=== PATIENT | female | born 1990 | race Caucasian/White ===

== ENCOUNTER 2023-12-07 08:02 | Emergency (ER) | payer OTHER, SELFPAY ==
[2023-12-07 08:06] VITALS: BP 99/64
--- NOTE | 2023-12-07 08:21 | ED.GENMED ---
Addendum entered and electronically signed by Suleman Sawant PA-C 12/09/23 07:25:
On cefdinir, UCx positive for 100k gram neg bacilli, awaiting final
Original Note:
History of Present Illness
General
Chief Complaint: Flank Pain
Source: patient and records
Exam Limitations: none
Time Seen by Provider: 12/07/23 08:12
Nursing documentation reviewed up to this point in time: agreed with
Travel History
Have you had any contact with someone who has COVID-19?: No
Do you have any symptoms of coronavirus? Fever > 100 degrees, chills, cough, shortness of breath, sore throat, loss of taste or smell, muscle aches, or headache?: No
History of Present Illness
History of Present Illness:
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 Patient reports
onset of symptoms 4 days ago they have been constant since that time although intensity seems to wax and wane. Reports dull pain located in the right flank. No clear triggering or relieving factors noted. She reports associated fever also x 4
days. She says she has noticed some urinary frequency and sensation of incomplete emptying of her bladder but has not noticed any dysuria or gross hematuria. She has not had any vaginal bleeding or discharge she says�last menstrual period she says
was 2 weeks ago. She denies any diarrhea; she has had some mild constipation over the past couple of days but says she had a bowel movement today which was normal. She says that she has some mild nausea and had some vomiting overnight. She says
she had similar symptoms with pyelonephritis in the past. She reports prior surgical history of left nephrectomy as above also prior cholecystectomy.
Past History
Past History
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
for nutcracker syndrome, Fela's thyroiditis)
ED Past Surgical History: Cholecystectomy, and Other ([place] teeth, L nephrectomy)
Social History
Tobacco: Non-smoker
Alcohol: None
Personal:
Living: with family
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
Family History
Family History: Negative Diabetes, Hypertension or CAD
Review of Systems
Review of Systems
All Other Systems: ROS reviewed and negative except as documented in HPI and ROS
Constitutional: Reports fever and chills
EENT: Denies sore throat or runny nose
Respiratory: Denies cough or trouble breathing
Cardiac: Denies chest pain
ABD/GI: Reports nausea, vomiting and constipated; Denies abdominal pain or diarrhea
: Reports frequency and flank pain; Denies dysuria or bleeding
Musculoskeletal: Denies neck pain
Neurological: Denies dizzy, headache, weakness or numbness
Phy Exam
Physical Exam
Physical Exam:
General: Awake, alert, oriented x3; no acute distress
Head: Normocephalic, atraumatic
Eyes: Conjunctiva normal, sclera anicteric
Throat: Airway intact, handling secretions
Neck: Trachea midline, supple without meningismus
Lungs: Clear to auscultation bilaterally, no wheezing, rales, rhonchi
Heart: Regular rate and rhythm, no murmurs, gallops, or rubs
Abd: Soft, non distended, nontender to deep palpation
Back: Right-sided CVA tenderness
Neuro: Cranial nerves grossly intact, speech fluid, ambulatory in ED with normal gait
Skin: no rash
Extremities: Warm well-perfused
Scores
Heart Failure Risk
Heart Failure Risk Score: Not Applicable
Heart Score for Chest Pain Patients
STEMI patient?: Not applicable
Withdrawal Assessment of Alcohol
Withdrawal Assessment Completed?: Not applicable
Course
Orders/Labs/Results
Orders:
Orders
12/07/23 08:13
Test Result ONCE
12/07/23 08:21
CT Abd/pel Without Iv Or Oral Urgent
Comment:
Reason For Exam: right flank pain; h/o L nephrectomy
Morphine Sulfate 4 mg IV NOW STA
12/07/23 08:24
0.9% Sodium Chloride 500 ml [Nss] 500 ml IV BOLUS
Ondansetron Injectable [Zofran] 4 mg IV NOW STA
12/07/23 09:04
Complete Blood Count/With Diff Urgent
Comprehensive Metabolic Panel Urgent
HCG, Serum Qualitative Screen Urgent
12/07/23 09:05
Urinalysis Reflex To Culture Urgent
Date Specimen was Collected: 12/07/23
Time Specimen was Collected: 08:43
Urine Microscopic Reflex Cult Urgent
Urine Culture Urgent
PENELOPE Source: U
Specimen Description:
Date Specimen was Collected: 12/07/23
Time Specimen was Collected: 08:43
Abnormal Lab Results
12/07/23 02
09:04 09:05
RBC 3.70 L 10^6/uL
(4.20-5.40)
Hgb 11.8 L g/dL
(12.0-16.0)
Hct 34.0 L %
(37.0-47.0)
MCH 31.9 H pg
(27.0-31.0)
MPV 10.5 H fL
(7.4-10.4)
Absolute Neuts (auto) 7.8 H 10^3/uL
(1.4-6.5)
Absolute Lymphs (auto) 0.5 L 10^3/uL
(1.2-3.4)
Neutrophils % 88.6 H %
(42.2-75.2)
Lymphocytes % 5.1 L %
(20.5-51.1)
Sodium 133 L mmol/L
(135-145)
BUN 18 H mg/dl
(7-17)
Creatinine 1.1 H mg/dL
(0.6-1.0)
Glucose 112 H mg/dl
(70-99)
AST 41 H U/L
(14-36)
ALT 49 H U/L
(0-35)
Alkaline Phosphatase 139 H U/L
(38-126)
Total Protein 5.8 L g/dl
(6.3-8.2)
Albumin 3.2 L g/dl
(3.5-5.0)
Ur Occult Blood Reflex 4+ A
(Negative)
Leukocyte Esterase Rfl 2+ A
(Negative)
Urine Albumin (Reflex) 2+ A
(Neg - Trace)
12/07/23 09:04
12/07/23 09:04
Vital Signs
Initial and Last Documented VS:
Initial Vital Signs
Temp Pulse Resp BP Pulse Ox
36.9 C 91 18 99/64 97
12/07/23 08:06 12/07/23 08:06 12/07/23 08:06 12/07/23 08:06 12/07/23 08:06
Last Documented Vital Signs
Temp Pulse Resp BP Pulse Ox
36.9 C 91 18 99/64 97
12/07/23 08:06 12/07/23 08:06 12/07/23 08:06 12/07/23 08:06 12/07/23 08:06
MDM/Problems Addressed
Differential Diagnosis Includes:
Nephrolithiasis, pyelonephritis, ovarian cyst, appendicitis somewhat less likely with no abdominal tenderness
MDM/Problems Addressed:
33-year-old female presents for evaluation of right flank pain associate with fever and urinary symptoms for the past 4 days as well as some nausea/vomiting overnight. She says similar prior episodes of pyelonephritis. Vital signs within normal
limits on arrival. Physical exam as above. Plan to place an IV check labs including a CBC and a CMP, hCG. Will check urinalysis. Will send for CT of the abdomen pelvis. Will treat pain and nausea and provide some fluids. Monitor closely
reassess after the above.
Labs reviewed: CBC shows marginal anemia which is stable. CMP shows creatinine 1.1 which is baseline for the patient. Marginal elevation of AST/ALT (41/49) unlikely of clinical significance�patient will follow-up with her PCP for repeat blood
work. Her hCG is negative. Her urinalysis is concerning for possible infection. CT of the abdomen pelvis shows no stone, normal-appearing appendix no other acute pathology�she does have some mild constipation. Concern with fever and flank pain
for potential pyelonephritis. Fortunately patient appears generally well and has no signs of sepsis here today. She has normal renal function. Discussed with nephrology given patient has had prior left nephrectomy and only has 1 remaining
kidney�with well appearing patient not septic reasonable to discharge on oral antibiotic. Patient feels comfortable with this plan. Spoke about return precautions all questions answered.
Chronic conditions affecting care:
Left nephrectomy
*Radiology
Radiology exam reviewed: radiology read reviewed
*Pulse Oximetry
Patient hypoxic: no
*Critical Care Note
Total Time (30-74mins, 75-104mins- exclusive of procedures): Not Applicable
Data Reviewed
Review of Other/Old Records Reveals: Labs and Records
Source: patient and records
Patient Management
Discussion with other providers: Dough Puncher (Discussed with nephrology)
ED Attending Note
-
Portions of this chart may have been created with voice recognition software.� Occasional wrong word or��sound alike� substitutions may have occurred due to the inherent limitations of voice recognition software.
Discharge Plan
Departure
Patient with high blood pressure during this ER visit?: No
Discharge Problem:
Pyelonephritis, Abnormal LFTs
Instructions: Kidney Infection (DC)
Prescriptions:
New
cefdinir 300 mg capsule
300 mg PO BID 7 Days Qty: 14 0RF
No Action
dronabinol [Marinol] 5 MG capsule
5 mg PO BID
clonazepam 0.5 MG tablet
1 mg PO BID
quetiapine [Seroquel] 200 mg Tablet
200 mg PO HS
tramadol 50 mg Tablet
50 mg PO BID
levothyroxine [Synthroid] 100 mcg Tablet
150 mcg PO DAILY
lansoprazole 30 mg Tablet,Disintegrat, Delay Rel
40 mg PO DAILY
quetiapine [Seroquel] 50 mg Tablet
50 mg PO TID
buprenorphine HCl [Belbuca] 75 mcg Film
75 mcg BUCCAL BID
Referrals:
Marino Jones DO [Family Provider] - Call in 1-3 days for appt
Activity Restrictions/Additional Instructions:
You should take the full course of antibiotics as prescribed to treat your urinary tract infection. You should follow-up with your primary doctor within the next few days to have repeat blood work as your liver function tests were noted to be
marginally abnormal here. You should also have repeat urinalysis as you had blood and protein in your urine�if this is persistent you will need further assessment.
Thank you for visiting the Emergency Department at [facility].
1. Please schedule a follow up appointment as directed. Call first thing tomorrow morning to make an appointment.
2. If indicated, please take your medications as instructed and indicated on discharge paperwork.
3. If any of your symptoms do not improve, or persist, or become more severe within 6-12 hours, please return to the emergency department for further care.
4. Please return to the emergency department if you develop a headache, neck pain/stiffness, fever greater than 100.4F, chest pain, shortness of breath, persistent nausea, vomiting, slurred speech, difficulty walking, numbness/tingling, weakness,
signs of infection or any other symptoms that are worrisome to you.
Please call [phone] if you have any questions.
Interventions
Interventions:
*Risk Screen - Suicide Last Done: 12/07/23 08:45
*General Assessment Last Done: 12/07/23 08:45
*Neglect/Abuse Screening Last Done: 12/07/23 08:45
ED- Fall Risk Assessment Last Done: 12/07/23 08:45
*ED COVID-19 Vaccine History Last Done: 12/07/23 08:08
[place]-Aqrnqf-Qawjxmwxox Assessment Last Done: 12/07/23 08:45
ED-Female Genitourinary Assessment Last Done: 12/07/23 08:45
[2023-12-07] MEDS: ZOFRAN 4 MG IV (08:50)
[2023-12-07] MEDS: NSS 500 IV (08:51)
[2023-12-07] MEDS: MORPHINE SULFATE 4 MG IV (08:51)
[2023-12-07 09:18] LABS: Urine Albumin 2+ (Neg - Trace); Urine Bilirubin Negative (Negative); Urine Character Very Cloudy (Clear); Urine Color Yellow; Urine Glucose Negative (Negative); Urine Ketone Negative (Negative); Urine Leukocyte 2+ (Negative); Urine Nitrite Negative (Negative); Urine Occult Blood 4+ (Negative); Urine Specific Gravity 1.015 (<1.030); Urine Urobilinogen Negative (Neg - 1+)
[2023-12-07 09:20] LABS: % Basophils 0.2 % (0-2); % Eosinophils 0.8 % (0-6); % Immature Granulocytes 0.3 % (0-0.5); % Lymphocytes 5.1 % (20.5-51.1); % Neutrophils 88.6 % (42.2-75.2); Absolute Eosinophils 0.1 10^3/uL (0-0.7); Absolute Lymphocytes 0.5 10^3/uL (1.2-3.4); Absolute Monocytes 0.4 10^3/uL (0.1-0.6); Absolute Neutrophils 7.8 10^3/uL (1.4-6.5); Hemoglobin 11.8 g/dL (12.0-16.0); Mean Corp Hgb Conc. 34.7 g/dL (33.0-37.0); Mean Corpuscular Hgb 31.9 pg (27.0-31.0); Mean Corpuscular Volume 91.9 fL (81.0-99.0); Mean Platelet Volume 10.5 fL (7.4-10.4); Nucleated Red Blood Cells % 0 %; Platelet Count 182 10^3/uL (130-400); Red Cell Dist. Width 12.4 % (11.5-14.5); White Blood Cell Count 8.8 10^3/uL (4.8-10.8)
[2023-12-07 09:29] LABS: ALT (SGPT) 49 U/L (0-35); AST (SGOT) 41 U/L (14-36); Albumin 3.2 g/dl (3.5-5.0); Alkaline Phosphatase 139 U/L (38-126); Blood Urea Nitrogen 18 mg/dl (7-17); Calcium 8.4 mg/dl (8.4-10.2); Carbon Dioxide 25 mmol/L (22-30); Chloride 103 mmol/L (98-107); Glucose 112 mg/dl (70-99); Potassium 3.6 mmol/L (3.5-5.1); Sodium 133 mmol/L (135-145); Total Bilirubin 0.4 mg/dl (0.2-1.3); Total Protein 5.8 g/dl (6.3-8.2); eGFR > 60.00
[2023-12-07 09:32] LABS: HCG, Serum Qualitative Screen Negative
[2023-12-07 09:51] LABS: Urine Bacteria Moderate (Negative); Urine Squamous Cell 21-25 /LPF (Few)
[2023-12-07 09:52] LABS: Urine White Cell 40-50 /HPF (0-5)
[2023-12-07] MEDS: ROCEPHIN 1000 MG IV (10:13)
[2023-12-07 10:30] VITALS: BP 101/63
== END 2023-12-07 10:32 | disposition home or self-care (01) ==
LOC: EMR 08:02
PROVIDERS: EMERGENCY PHYSICIAN Emergency Medicine; FAMILY PHYSICIAN Internal Medicine
DX: N12 Tubulo-interstitial nephritis, not specified as acute or chronic (principal); R79.89 Other specified abnormal findings of blood chemistry; Z90.5 Acquired absence of kidney
CPT/HCPCS: 99284; 96374; 96375 ×2; 96361; 74176; 80053; 81003; 81015; 84703; 85025; 87077; 87086; 87186

== ENCOUNTER → 2024-02-24 08:58 | Outpatient (REF) | payer OTHER, SELFPAY | LOC: RAD 08:58 | PROVIDERS: ATTENDING PHYSICIAN Anesthesiology; FAMILY PHYSICIAN Internal Medicine | DX: M54.16 Radiculopathy, lumbar region (principal) | CPT/HCPCS: 76705 ==

== ENCOUNTER → 2024-07-19 13:44 | Outpatient (REF) | payer OTHER, SELFPAY | LOC: HWRAD 13:44 | PROVIDERS: ATTENDING PHYSICIAN Obstetrics & Gynecology; FAMILY PHYSICIAN Internal Medicine | DX: R10.2 Pelvic and perineal pain (principal); N92.0 Excessive and frequent menstruation with regular cycle | CPT/HCPCS: 76830; 76856 ==

== ENCOUNTER → 2025-02-09 17:24 | Outpatient (REF) | payer OTHER, SELFPAY | LOC: RAD 17:24 | PROVIDERS: ATTENDING PHYSICIAN Internal Medicine | DX: R07.81 Pleurodynia (principal) | CPT/HCPCS: 71250 ==

== ENCOUNTER → 2025-02-10 10:04 | Outpatient (REF) | payer OTHER, SELFPAY | LOC: RAD 10:04 | PROVIDERS: ATTENDING PHYSICIAN Surgery; FAMILY PHYSICIAN Internal Medicine | DX: Z90.5 Acquired absence of kidney (principal); R31.9 Hematuria, unspecified | CPT/HCPCS: 74178; Q9967 ==

== ENCOUNTER → 2025-08-07 13:01 | Outpatient (REF) | payer OTHER, SELFPAY | LOC: RAD 13:01 | PROVIDERS: ATTENDING PHYSICIAN Anesthesiology | DX: M19.011 Primary osteoarthritis, right shoulder (principal) | CPT/HCPCS: 73030 ==

== ENCOUNTER 2025-08-23 11:10 | Emergency (ER) | payer OTHER, SELFPAY ==
[2025-08-23 11:15] VITALS: BP 164/104
[2025-08-23 11:48] VITALS: BMI 26.2
[2025-08-23 11:51] VITALS: BP 143/96
[2025-08-23 12:00] VITALS: BP 138/100
--- NOTE | 2025-08-23 12:00 | ED.GENMED ---
History of Present Illness
General
Chief Complaint: Heart Rate Problem
Source: patient
Exam Limitations: none
Time Seen by Provider: 08/23/25 12:00
History of Present Illness
History of Present Illness:
35yoF with a history of hypothyroidism, nutcracker syndrome s/p L nephrectomy, and GERD presenting for evaluation of palpitations. Patient reports elevated heart rate over the past 3 days. Her resting heart rate is typically in the 60s and it has
been in the 100s the past few days. She reports feeling like her heart beating in the back of her throat mainly at nighttime. She states it feels like 'meth is running through my veins.' She had some left upper chest discomfort earlier today. No
new medication changes. She denies any drug/alcohol use or caffeine use. She is currently being evaluated for adrenal insufficiency by her coater smoking pipe and has a thyroid ultrasound scheduled for this afternoon.
Past History
Past History
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
for nutcracker syndrome, Fela's thyroiditis)
ED Past Surgical History: Cholecystectomy, and Other ([place] teeth, L nephrectomy)
Social History
Tobacco: Non-smoker
Alcohol: None
Personal:
Living: with family
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
Family History
Family History: Negative Diabetes, Hypertension or CAD
Phy Exam
General Physical Exam
General Presentation: well appearing and no apparent distress
General Skin: warm and dry
General Habitus: normal
General Mental: alert
ENT Exam
ENT Exam: normocephalic
Cardiovascular Exam
Cardiovascular Exam: regular rate/rhythm, no edema, no murmur and normal peripheral pulses
Pulmonary Exam
Pulmonary Exam: lungs clear, no respiratory distress, no rales, no crackles, no rhonchi and no wheezing
Neurological Exam
Neurological Exam: alert
Rosa M Coma Scale
Eye Opening: Spontaneous
Verbal Response: Oriented
Motor Response: Obeys Commands
GCS Total Score: 15
Skin Exam
Skin Exam: normal color and warm/dry
Psychiatric Exam
Psychiatric Exam: normal mood/affect
Course
Orders/Labs/Results
Orders:
Orders
08/23/25 11:19
Electrocardiogram (*1) Urgent
Reason for Study: Chest Pain
EKG- Treatment ONCE
08/23/25 11:52
Test Result ONCE
08/23/25 12:00
Complete Blood Count/With Diff Urgent
Comprehensive Metabolic Panel Urgent
HCG, Serum Qualitative Screen Urgent
Comment: Notify provider if positive test present
Magnesium Urgent
Comment: ADD
TSH Reflex To Free T4 Urgent
Troponin I Urgent
08/23/25 12:06
Add On- LAB Urgent
Comments:: magnesium
Tests Added?: magnesium
08/23/25 12:28
COVID-19 Antigen Urgent
Source: Nasal Swab
Influenza A+B Rapid Molecular Urgent
PENELOPE Source: Nasal Swab
Specimen Description:
08/23/25 12:39
0.9% Sodium Chloride 1000 ml [Nss] 1,000 ml IV BOLUS
Abnormal Lab Results
08/23/25
12:00
RBC 3.92 L 10^6/uL
(4.20-5.40)
Hct 36.0 L %
(37.0-47.0)
Sodium 134 L mmol/L
(135-145)
BUN 23 H mg/dl
(7-17)
Creatinine 1.2 H mg/dL
(0.6-1.0)
Glucose 102 H mg/dl
(70-99)
08/23/25 12:00
08/23/25 12:00
Vital Signs
Initial and Last Documented VS:
Initial Vital Signs
Temp Pulse Resp BP Pulse Ox
98.2 F 97 20 164/104 100
08/23/25 11:15 08/23/25 11:15 08/23/25 11:15 08/23/25 11:15 08/23/25 11:15
Last Documented Vital Signs
Temp Pulse Resp BP Pulse Ox
98.2 F 95 20 142/95 100
08/23/25 11:15 08/23/25 14:15 08/23/25 11:15 08/23/25 14:00 08/23/25 14:00
MDM/Problems Addressed
Differential Diagnosis Includes:
35yoF here with palpitations and elevated heart rate x 3 days. No associated syncope. Had chest discomfort earlier. HR in the 80-90 range on initial exam and sinus rhythm noted on monitor. Exam otherwise reassuring. Differential diagnosis includes
but is not limited to: arrhythmia, PVCs, thyroid dysfunction, electrolyte abnormality, anxiety, doubt PE as oxygen saturation is 100% and she has no pleuritic pain or DVT symptoms
Initial ED plan: Triage EKG shows NSR without ischemic changes or ectopy. Intervals are normal. Will check cardiac labs, magnesium, TSH, and COVID/flu swab.
*Pulse Oximetry
SaO2: 100
Oxygen Mode of Delivery: Room air
Patient hypoxic: no
*EKG
Interpreted by ED Provider?: Yes
EKG Intrepretation Date: 08/23/25
Heart Rate: 92
Rate: normal
Rhythm: sinus
[place]: normal axis
Interval: normal interval
QRS Pattern: normal QRS
Ischemia: no ischemia
*Critical Care Note
Total Time (30-74mins, 75-104mins- exclusive of procedures): Not Applicable
Update Note
Update Note:
Sodium 134. Creatinine 1.2 which is baseline. Potassium, magnesium, TSH normal. Troponin undetectable. IV fluid bolus given which did not help symptoms. HR remains in the 80-90 range on reassessment. No telemetry events throughout ED stay. Patient
stable for discharge. She was advised to f/u with PCP and cardiology. ED return precautions reviewed and she was discharged in stable condition.
ED Attending Note
-
Portions of this chart may have been created with voice recognition software.� Occasional wrong word or��sound alike� substitutions may have occurred due to the inherent limitations of voice recognition software.
Discharge Plan
Departure
Patient Disposition: Home (Routine Discharge)
Date of Disposition: 08/23/25
Time of Disposition: 13:36
Patient with high blood pressure during this ER visit?: Yes
Discharge Problem:
Heart palpitations
Instructions: Palpitations (DC)
Prescriptions:
No Action
dronabinol [Marinol] 5 MG capsule
5 mg PO BID
clonazepam 0.5 MG tablet
1 mg PO BID
quetiapine [Seroquel] 200 mg Tablet
200 mg PO HS
tramadol 50 mg Tablet
50 mg PO BID
levothyroxine [Synthroid] 100 mcg Tablet
150 mcg PO DAILY
lansoprazole 30 mg Tablet,Disintegrat, Delay Rel
40 mg PO DAILY
quetiapine [Seroquel] 50 mg Tablet
50 mg PO TID
buprenorphine HCl [Belbuca] 75 mcg Film
75 mcg BUCCAL BID
cefdinir 300 mg capsule
300 mg PO BID 7 Days Qty: 14 0RF
Referrals:
Marino Jones DO [Family Provider, Internal Medicine]
Ray Graves DO [Active, Cardiology]
Activity Restrictions/Additional Instructions:
Please follow-up with your family doctor and cardiology. You will benefit from an outpatient Holter monitor.
Return to the ER with any new or worsening symptoms.
Interventions
Interventions:
*Risk Screen - Suicide Last Done: 08/23/25 11:15
*General Assessment Last Done: 08/23/25 11:15
*Neglect/Abuse Screening Last Done: 08/23/25 11:15
*ED- Fall Risk Assessment Last Done: 08/23/25 11:48
*ED COVID-19 Vaccine History Last Done: 08/23/25 11:48
*ED Influenza Vaccine History Last Done: 08/23/25 11:48
*Nursing Disposition Last Done: 08/23/25 14:33
ED- Cardiac Assessment Last Done: 08/23/25 12:10
ED- Pulmonary Assessment Last Done: 08/23/25 12:10
Discharge Date and Time
Discharge Date/Time: 08/23/25 14:35
Print Language: [place] CITIZ[place]
[2025-08-23 12:18] LABS: Hematocrit 36.0 % (37.0-47.0); Hemoglobin 12.0 g/dL (12.0-16.0); Mean Corp Hgb Conc. 33.3 g/dL (33.0-37.0); Mean Corpuscular Volume 91.8 fL (81.0-99.0); Nucleated Red Blood Cells % 0 %; Platelet Count 357 10^3/uL (130-400); Red Cell Dist. Width 13.2 % (11.5-14.5)
[2025-08-23 12:26] LABS: HCG, Serum Qualitative Screen Negative
[2025-08-23 12:36] LABS: ALT (SGPT) 26 U/L (0-35); AST (SGOT) 25 U/L (14-36); Albumin 3.8 g/dl (3.5-5.0); Alkaline Phosphatase 56 U/L (38-126); Blood Urea Nitrogen 23 mg/dl (7-17); Calcium 9.1 mg/dl (8.4-10.2); Carbon Dioxide 23 mmol/L (22-30); Chloride 106 mmol/L (98-107); Estimated Creatinine Clearance 58 ml/min; Glucose 102 mg/dl (70-99); Magnesium 2.0 mg/dl (1.6-2.3); Sodium 134 mmol/L (135-145); Total Protein 6.5 g/dl (6.3-8.2); eGFR 59.79
[2025-08-23 12:38] LABS: Troponin I < 0.012 ng/ml
[2025-08-23 12:42] LABS: Potassium 4.1 mmol/L (3.5-5.1)
[2025-08-23] MEDS: NSS 1000 IV (12:46)
[2025-08-23 13:00] VITALS: BP 140/91
[2025-08-23 13:03] LABS: COVID-19 Antigen Negative (Negative)
[2025-08-23 14:00] VITALS: BP 142/95
== END 2025-08-23 14:35 | disposition home or self-care (01) ==
LOC: EMR 11:10
PROVIDERS: Physician Assistant; EMERGENCY PHYSICIAN Emergency Medicine; FAMILY PHYSICIAN Internal Medicine
DX: R00.2 Palpitations (principal); R03.0 Elevated blood-pressure reading, without diagnosis of hypertension; N18.31 Chronic kidney disease, stage 3a; I87.1 Compression of vein; E03.9 Hypothyroidism, unspecified; N94.89 Other specified conditions associated with female genital organs and menstrual cycle; K21.9 Gastro-esophageal reflux disease without esophagitis; Z90.5 Acquired absence of kidney
CPT/HCPCS: 99284; 96360; 96361; 80053; 83735; 84443; 84484; 84703; 85025; 87502; 87811; 93005

== ENCOUNTER → 2025-09-04 12:41 | Outpatient (REF) | payer OTHER, SELFPAY | LOC: HWRAD 12:41 | PROVIDERS: ATTENDING PHYSICIAN Internal Medicine Endocrinology, Diabetes & Metabolism; FAMILY PHYSICIAN Internal Medicine | DX: E06.3 Autoimmune thyroiditis (principal); E06.5 Other chronic thyroiditis; I87.1 Compression of vein; E55.9 Vitamin D deficiency, unspecified; Z90.5 Acquired absence of kidney | CPT/HCPCS: 76536 ==

== ENCOUNTER 2025-10-07 07:58 | Emergency (ER) | payer OTHER, SELFPAY ==
[2025-10-07 08:00] VITALS: BP 99/62
--- NOTE | 2025-10-07 08:22 | ED.GENMED ---
History of Present Illness
General
Chief Complaint: Flank Pain
Source: patient
Time Seen by Provider: 10/07/25 08:07
History of Present Illness
History of Present Illness:
35-year-old female with a past medical history of a left nephrectomy, GERD, chronic pain syndrome presenting to the ER for evaluation after waking up with a sudden onset of pain in her right lower quadrant/pelvic area on Thursday, pain lasted for
couple of hours and then subsided and has not returned but has had a lasting dull aching sensation in her right flank accompanied with fever with a Tmax of 103, this morning 102.5, took Tylenol at 630 prior to arrival. Patient endorses some mild
nausea but no vomiting. She states urine has been a little bit cloudier than normal as well as some more urinary urgency. She also endorses some mild URI-like symptoms over the last week, cough and sinus congestion. No known sick contacts or
recent antibiotics. No other concerns presently
Past History
Past History
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
for nutcracker syndrome, Fela's thyroiditis)
ED Past Surgical History: Cholecystectomy, and Other ([place] teeth, L nephrectomy)
Social History
Tobacco: Non-smoker
Alcohol: None
Drug: None
Personal:
Living: with family
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
Family History
Family History: Negative Diabetes, Hypertension or CAD
Review of Systems
Review of Systems
All Other Systems: ROS reviewed and negative except as documented in HPI and ROS
Phy Exam
Physical Exam
Physical Exam:
GENERAL: Alert , appears unwell but nontoxic
EYE: clear conjunctiva b/l
HEAD: NCAT
ENT: o/p clr, mmm.
CARDIAC: Tachycardic rate, regular rhythm
LUNGS: Clear breath sounds bilaterally, no acute respiratory distress, no wheezes/rales/rhonchi
ABDOMEN: Soft, without focal tenderness, no r/g, no cvat
NEUROLOGICAL: Alert and oriented
SKIN: Warm and dry, skin intact.
MUSCULOSKELETAL: No edema, well perfused.
PSYCH: Normal and appropriate interaction.
Scores
Heart Failure Risk
Heart Failure Risk Score: Not Applicable
Heart Score for Chest Pain Patients
STEMI patient?: Not applicable
Withdrawal Assessment of Alcohol
Withdrawal Assessment Completed?: Not applicable
Sepsis
Sepsis Screening
Sepsis Assessment: Sepsis
Sepsis Screen
Sepsis Screen: Sepsis
Date: 10/07/25
Time: 12:35
Course
Orders/Labs/Results
Orders:
Orders
10/07/25 08:20
CT Abd/pel Without Iv Or Oral Urgent
Comment:
Reason For Exam: right flank pain, hx L nephrectomy
0.9% Sodium Chloride 1000 ml [Nss] 1,000 ml IV BOLUS
Test Result ONCE
10/07/25 08:31
COVID-19 Antigen Urgent
Source: Nasal Swab
Complete Blood Count/With Diff Urgent
Comprehensive Metabolic Panel Urgent
Ferritin Urgent
Comment: ADD ON
HCG, Serum Qualitative Screen Urgent
Iron Urgent
Comment: ADD ON
Lactic Acid Q4H
Comment: CANCEL 2nd LACTIC ACID IF 1st LACTIC ACID IS LESS THAN 2
Total Iron Binding Urgent
Comment: ADD ON
Urinalysis Reflex To Culture Urgent
Date Specimen was Collected: 10/07/25
Time Specimen was Collected: 08:23
Urine Microscopic Reflex Cult Urgent
Blood Culture Q30M
PENELOPE Source: Blood/Venous
Specimen Description:
Blood Culture Q30M
PENELOPE Source: Blood/Venous
Specimen Description:
Influenza A+B Rapid Molecular Urgent
PENELOPE Source: Nasal Swab
Specimen Description:
Urine Culture Urgent
PENELOPE Source: U
Specimen Description:
Obtained by: Random
Date Specimen was Collected: 10/07/25
Time Specimen was Collected: 08:23
10/07/25 08:56
Add On- LAB Urgent
Tests Added?: ferritin, iron, TIBC
10/07/25 09:26
CefTRIAXone [Rocephin] 1,000 mg IV NOW STA
Abnormal Lab Results
10/07/25
08:31
RBC 3.50 L 10^6/uL
(4.20-5.40)
Hgb 10.6 L g/dL
(12.0-16.0)
Hct 30.9 L %
(37.0-47.0)
MPV 10.5 H fL
(7.4-10.4)
Absolute Lymphs (auto) 1.0 L 10^3/uL
(1.2-3.4)
Absolute Monos (auto) 0.7 H 10^3/uL
(0.1-0.6)
Lymphocytes % 12.3 L %
(20.5-51.1)
Chloride 110 H mmol/L
(98-107)
Carbon Dioxide 17 L mmol/L
(22-30)
Creatinine 1.4 H mg/dL
(0.6-1.0)
Glucose 104 H mg/dl
(70-99)
Lactic Acid < 0.5 L mmol/L
(0.7-2.0)
Iron < 20 L ug/dl
(37-170)
AST 67 H U/L
(14-36)
ALT 72 H U/L
(0-35)
Alkaline Phosphatase 144 H U/L
(38-126)
Ur Occult Blood Reflex 3+ A
(Negative)
Leukocyte Esterase Rfl 1+ A
(Negative)
Urine RBC 7-10 A /HPF
(0-2)
Urine WBC (Reflex) 30-40 A /HPF
(0-5)
Urine Bacteria (Reflex) Few A
(Negative)
Urine Albumin (Reflex) 2+ A
(Neg - Trace)
10/07/25 08:31
10/07/25 08:31
Vital Signs
Initial and Last Documented VS:
Initial Vital Signs
Temp Pulse Resp BP Pulse Ox
99.6 F 109 16 99/62 98
10/07/25 08:00 10/07/25 08:00 10/07/25 08:00 10/07/25 08:00 10/07/25 08:00
Last Documented Vital Signs
Temp Pulse Resp BP Pulse Ox
99.6 F 87 16 99/62 99
10/07/25 08:00 10/07/25 09:30 10/07/25 09:30 10/07/25 08:00 10/07/25 09:30
MDM/Problems Addressed
Differential Diagnosis Includes:
Pyelonephritis
Cystitis
UTI bacteremia
COVID/flu/other viral etiology
Pneumonia
Renal/ureteral colic/kidney stone
MDM/Problems Addressed:
35-year-old female presenting to the ER for evaluation of fevers over the last 3 days, right-sided flank pain, nausea but no vomiting. History of pyelonephritis in the past but on the left side. Status post left nephrectomy secondary to vascular
issues. Arrives to the ER borderline hypotensive, tachycardic and with known fever this morning. Will check labs including lactic acid and cultures. CT imaging ordered. Symptomatic relief with fluids and Toradol. Reassessment following
*Radiology
Radiology exam reviewed: radiology read reviewed
*Pulse Oximetry
SaO2: 98
Oxygen Mode of Delivery: Room air
Patient hypoxic: no
*Critical Care Note
Total Time (30-74mins, 75-104mins- exclusive of procedures): Not Applicable
Data Reviewed
Review of Other/Old Records Reveals: Labs and Records
Patient Management
Escalation/DeEscalation of care consider admission/obs:
Patient CT scan shows right-sided hydronephrosis but no evidence for obstructive process. Lab findings noted for mild renal insufficiency, patient states that this is baseline for her. Urine consistent with urinary tract infection, dose of
Rocephin was given. Given patient has only the right kidney combined with her infection and renal dysfunction we discussed inpatient treatment for IV antibiotics and trending of her culture however patient states she needs to be home because of her
's work schedule and caring for her child. I reviewed records which did show a previous urine culture growing E. coli sensitive to multiple oral antibiotics, cefdinir sent to pharmacy. I did discuss with patient potential complications if
her infection is to worsen including the need for dialysis if her renal function continues to worsen. Patient did express understanding and still wished to be discharged home. She will follow-up with primary care provider as well as urology.
Aware of return precautions to the ER.
ED Attending Note
-
Portions of this chart may have been created with voice recognition software.� Occasional wrong word or��sound alike� substitutions may have occurred due to the inherent limitations of voice recognition software.
Discharge Plan
Departure
Patient Disposition: Home (Routine Discharge)
Date of Disposition: 10/07/25
Time of Disposition: 10:40
Patient with high blood pressure during this ER visit?: No
Discharge Problem:
Acute pyelonephritis
Instructions: Urinary tract infection in adults - ED (DC)
Prescriptions:
New
cefdinir 300 mg capsule
300 mg PO BID 10 Days Qty: 20 0RF
No Action
dronabinol [Marinol] 5 MG capsule
5 mg PO BID
clonazepam 0.5 MG tablet
1 mg PO BID
quetiapine [Seroquel] 200 mg Tablet
200 mg PO HS
tramadol 50 mg Tablet
50 mg PO BID
levothyroxine [Synthroid] 100 mcg Tablet
150 mcg PO DAILY
lansoprazole 30 mg Tablet,Disintegrat, Delay Rel
40 mg PO DAILY
quetiapine [Seroquel] 50 mg Tablet
50 mg PO TID
buprenorphine HCl [Belbuca] 75 mcg Film
75 mcg BUCCAL BID
cefdinir 300 mg capsule
300 mg PO BID 7 Days Qty: 14 0RF
Referrals:
Marino Jones DO [Family Provider, Internal Medicine]
Interventions
Interventions:
*Risk Screen - Suicide Last Done: 10/07/25 08:00
*General Assessment Last Done: 10/07/25 08:00
*Neglect/Abuse Screening Last Done: 10/07/25 08:00
*ED COVID-19 Vaccine History Last Done: 10/07/25 08:09
*ED Influenza Vaccine History Last Done: 10/07/25 08:[address]
[facility] Fall Risk Assessment Tool Last Done: 10/07/25 08:47
*Nursing Disposition Last Done: 10/07/25 10:58
VC-Fqicsh-Bifuxlqxnf Assessment Last Done: 10/07/25 08:08
ED-Female Genitourinary Assessment Last Done: 10/07/25 08:08
Discharge Date and Time
Discharge Date/Time: 10/07/25 10:55
Print Language: MACEDONIAN
[2025-10-07] MEDS: NSS 1000 IV (08:44)
[2025-10-07 08:53] LABS: Urine Character Clear (Clear)
[2025-10-07 08:54] LABS: Hematocrit 30.9 % (37.0-47.0); Hemoglobin 10.6 g/dL (12.0-16.0); Mean Corp Hgb Conc. 34.3 g/dL (33.0-37.0); Mean Corpuscular Volume 88.3 fL (81.0-99.0); Nucleated Red Blood Cells % 0 %; Platelet Count 185 10^3/uL (130-400); Red Cell Dist. Width 13.1 % (11.5-14.5)
[2025-10-07 09:10] LABS: COVID-19 Antigen Negative (Negative)
[2025-10-07 09:17] LABS: Urine Squamous Cell 26-30 /LPF (Few); Urine Urothelial Cell 0-2 /LPF (FEW)
[2025-10-07 09:18] LABS: Urine White Cell 30-40 /HPF (0-5)
[2025-10-07] MEDS: ROCEPHIN 1000 MG IV (09:29)
[2025-10-07 09:36] LABS: HCG, Serum Qualitative Screen Negative
[2025-10-07 09:43] LABS: ALT (SGPT) 72 U/L (0-35); AST (SGOT) 67 U/L (14-36); Albumin 3.6 g/dl (3.5-5.0); Alkaline Phosphatase 144 U/L (38-126); Blood Urea Nitrogen 16 mg/dl (7-17); Calcium 8.6 mg/dl (8.4-10.2); Carbon Dioxide 17 mmol/L (22-30); Chloride 110 mmol/L (98-107); Glucose 104 mg/dl (70-99); Potassium 3.8 mmol/L (3.5-5.1); Sodium 135 mmol/L (135-145); Total Protein 6.3 g/dl (6.3-8.2); eGFR 49.69
[2025-10-07 09:48] LABS: Iron < 20 ug/dl (37-170)
[2025-10-07 09:53] LABS: Total Iron Binding Capacity 317 ug/dl (265-497)
[2025-10-07 10:17] LABS: Ferritin 38.1 ng/ml (6.24-137)
== END 2025-10-07 10:55 | disposition home or self-care (01) ==
LOC: EMR 07:58
PROVIDERS: Physician Assistant Medical; EMERGENCY PHYSICIAN Emergency Medicine; FAMILY PHYSICIAN Internal Medicine
DX: N10 Acute pyelonephritis (principal); N18.31 Chronic kidney disease, stage 3a; G89.4 Chronic pain syndrome; Z90.5 Acquired absence of kidney; Z90.49 Acquired absence of other specified parts of digestive tract
CPT/HCPCS: 96374; 96361; 99284; 74176; 80053; 81003; 81015; 82728; 83540; 83550; 83605; 84703; 85025; 87040; 87086; 87502; 87811